=== PATIENT | male | born 1955 ===

== ENCOUNTER 2017-01-21 21:49 | Emergency (ER) | payer OTHER ==
[2017-01-21 22:25] LABS: BASO # 0.1 K/uL (0.0-0.2); BASO % 0.9 % (0.0-2.0); EOS # 0.3 K/uL (0.0-0.7); EOS % 4.8 % (0.0-4.0); HEMATOCRIT 44.1 % (35.0-51.0); LYMPH # 2.3 K/uL (1.0-4.3); LYMPH % 37.8 % (20.0-40.0); MEAN CELL VOLUME 85.4 fL (80.0-94.0); MEAN CORPUSCULAR HEMOGLOBIN 28.1 pg (27.0-31.0); MEAN CORPUSCULAR HGB CONC 32.9 g/dL (33.0-37.0); MEAN PLATELET VOLUME 8.3 fL (7.2-11.7); MONO # 0.6 K/uL (0.0-0.8); MONO % 10.3 % (0.0-10.0); RED CELL DISTRIBUTION WIDTH 14.3 % (11.5-14.5); WHITE BLOOD COUNT 6.2 K/uL (4.8-10.8)
[2017-01-21 22:26] VITALS: RESP 18
--- NOTE | 2017-01-21 22:26 | C.PDOC ---
History Of Present Illness 62 year old male presents to the ER with a complaint of left flank pain that radiates forward. Patient notes he had right flank pain yesterday. Denies fever , nausea, vomiting, or other complaints. Time Seen by Provider: 01/21/17 22:03 Chief Complaint (Nursing): Abdominal Pain History Per: Patient History/Exam Limitations: no limitations Onset/Duration Of Symptoms: Hrs Current Symptoms Are (Timing): Still Present Location Of Pain/Discomfort: Other (Left flank) Radiation Of Pain To:: None Quality Of Discomfort: "Pain" Associated Symptoms: denies: Fever, Chills, Nausea, Vomiting Exacerbating Factors: None Alleviating Factors: None Recent travel outside of the [place]: No Past Medical History Reviewed: Historical Data, Nursing Documentation, Vital Signs Vital Signs: Last Vital Signs Temp 98.1 F 01/21/17 23:34 Pulse 75 01/21/17 23:34 Resp 18 01/21/17 23:34 BP 123/75 01/21/17 23:34 Pulse Ox 100 01/21/17 23:46 - Medical History PMH: Colonic Polyps (REMOVED) Surgical History: Cholecystectomy Family History: States: Unknown Family Hx - Social History Hx Alcohol Use: No Hx Substance Use: No - Immunization History Hx Tetanus Toxoid Vaccination: No Hx Influenza Vaccination: No Hx Pneumococcal Vaccination: No Review Of Systems Constitutional: Negative for: Fever, Chills Gastrointestinal: Negative for: Nausea, Vomiting Musculoskeletal: Positive for: Other (Left flank pain) Physical Exam - Physical Exam Appears: Non-toxic, No Acute Distress Skin: Normal Color, Warm, Dry Head: Atraumatic, Normacephalic Eye(s): bilateral: Normal Inspection Oral Mucosa: Moist Neck: Normal, No Midline Cervical Tenderness, No Paracervical Tenderness, Supple Chest: Symmetrical, No Tenderness Cardiovascular: Rhythm Regular Respiratory: Normal Breath Sounds, No Rales, No Rhonchi, No Wheezing Gastrointestinal/Abdominal: Soft, No Tenderness Back: Other (Left flank tenderness) Extremity: Normal ROM (x4) Neurological/Psych: Oriented x3, Normal Speech, Other (No focal deficits) ED Course And Treatment - Laboratory Results Result Diagrams: 01/21/17 22:21 01/21/17 22:21 O2 Sat by Pulse Oximetry: 100 - CT Scan/US CT abd/pel Other Rad Studies (CT/US): Read By Radiologist, Radiology Report Reviewed CT/US Interpretation: EXAM: CT Abdomen and Pelvis Without Intravenous Contrast. CLINICAL HISTORY: 62 years old, male; Pain; Abdominal pain; Flank; Other: Stas; Additional info: Abd pain. TECHNIQUE: Axial computed tomography images of the abdomen and pelvis without intravenous contrast. All CT. scans at this facility use one or more dose reduction techniques, viz.: automated exposure control;. ma/kV adjustment per patient size (including targeted exams where dose is matched to indication; i.e. head); or iterative reconstruction technique. Coronal and sagittal reformatted images were created and reviewed. COMPARISON: No relevant prior studies available. FINDINGS: Lower thorax: Cardiomegaly. Subpleural reticular opacities within the dependent aspect of the lower. lobes may represent subsegmental atelectasis or scarring. ABDOMEN: Liver: The liver is normal in appearance. Gallbladder and bile ducts: There has been a cholecystectomy. No ductal dilation. Pancreas: The pancreas is normal. No ductal dilation. Spleen: The spleen is normal. Adrenals: The adrenal glands are normal. Kidneys and ureters: Large fluid attenuation lesion within the lower pole of the left kidney measuring. 5.3 cm x 5.2 cm x 5.8 cm, consistent with a simple cyst. No renal stone or hydronephrosis.The. ureters are normal. Stomach and bowel: There is a moderate amount of stool present within the distal colon and a large. amount of stool present within the proximal colon. Anastomotic suture material within the right. midabdomen region of the hepatic flexure. No mucosal thickening. Appendix: The appendix is not visualized and is likely surgically absent. PELVIS: Bladder: The bladder is normal. No stones. Reproductive: The prostate gland demonstrates nonspecific parenchymal calcifications. Mild. prostatic hypertrophy. Small right hydrocele.There are numerous benign phleboliths in the pelvis. ABDOMEN and PELVIS: Intraperitoneal space: Normal. No free air. No significant fluid collection. Bones/joints: Lumbar spondylosis. No acute osseous abnormality. No dislocation. Soft tissues: Small fat-containing right hernia. Vasculature: The aorta demonstrates mild atherosclerotic calcification. No abdominal aortic. aneurysm. Lymph nodes: Normal. No enlarged lymph nodes. IMPRESSION: 1. No urolithiasis. 2. Moderate to large stool load. Correlate for constipation. 3. Prostatic hypertrophy. 4. Small fat-containing right inguinal hernia. 5. Small right hydrocele. 6. Cardiomegaly. Medical Decision Making Medical Decision Making: ro renal stone, uti/pyelo Blood work, CT abd/pel, and urinalysis ordered. Toradol administered. 1100: ct shows moderate constipation, other huston neg. pt offered enema refuses, states he wishes to go home. abd soft no ttp Disposition - Disposition Referrals: Braden Camejo MD [Staff Provider] - Disposition: HOME/ ROUTINE Disposition Time: 22:48 Condition: STABLE Additional Instructions: follow up with your doctor. return to er with worsening symptoms or concerns. Prescriptions: Polyethylene Glycol 3350 [Miralax] 17 gm PO DAILY PRN #4 ml PRN Reason: Constipation Instructions: Constipation (ED), Acute Abdominal Pain (ED) Forms: Socrative (Lao) - Clinical Impression Clinical Impression: Abdominal pain, Constipation - Scribe Statement The provider has reviewed the documentation as recorded by the Scribe gM Valles All medical record entries made by the Scribe were at my direction and personally dictated by me. I have reviewed the chart and agree that the record accurately reflects my personal performance of the history, physical exam, medical decision making, and the department course for this patient. I have also personally directed, reviewed, and agree with the discharge instructions and disposition.
[2017-01-21 22:43] LABS: ALB/GLOB RATIO 1.1 (1.0-2.1); ALKALINE PHOSPHATASE 64 U/L (38-126); ALT/SGPT 71 U/L (21-72); AST/SGOT 47 U/L (17-59); BILIRUBIN,TOTAL 0.7 mg/dL (0.2-1.3); BLOOD UREA NITROGEN 16 mg/dL (9-20); CALCIUM 8.3 mg/dl (8.6-10.4); CARBON DIOXIDE 25 mmol/L (22-30); CHLORIDE 99 mmol/L (98-107); GFR AFRICAN-AMERICAN > 60; GLUCOSE,RANDOM 98 mg/dL (75-110); POTASSIUM 3.8 mmol/L (3.6-5.2); SODIUM 131 mmol/L (132-148); TOTAL PROTEIN 7.2 g/dL (6.3-8.3)
[2017-01-21 22:48] LABS: RBC URINE 1 /hpf (0-3); URINE BILIRUBIN NEGATIVE (NEGATIVE); URINE BLOOD NEGATIVE (NEGATIVE); URINE COLOR Yellow (YELLOW); URINE GLUCOSE (UA) NORMAL (Normal); URINE KETONE NEGATIVE (NEGATIVE); URINE LEUKOCYTE ESTERASE NEG Leu/uL (Negative); URINE PROTEIN NEGATIVE (NEGATIVE); URINE UROBILINOGEN NORMAL mg/dL (0.2-1.0); WBC URINE < 1 /hpf (0-5)
[2017-01-21 23:19] LABS: INR 1.1
[2017-01-21 23:35] VITALS: BP 123/75; PULSE 75; TEMP 98.1
[2017-01-21 23:46] VITALS: O2SAT 100
--- NOTE | 2017-01-22 18:01 | CT ---
PROCEDURE: CT scan of the abdomen and pelvis dated 01/21/2017. HISTORY: Abdominal pain. COMPARISON: None. TECHNIQUE: Contiguous axial images of the abdomen and pelvis. Oral contrast was administered. No IV contrast given. Coronal and Sagittal reformats generated. Radiation dose: Total exam DLP = 718.44 mGy-cm. This CT exam was performed using one or more of the following dose reduction techniques: Automated exposure control, adjustment of the mA and/or kV according to patient size, and/or use of iterative reconstruction technique. FINDINGS: LOWER THORAX: Mild passive atelectasis both posterior lower lung gonzalez. No evidence of basilar pneumothorax. Heart size is enlarged. Small hiatal hernia. LIVER: Unremarkable. No gross lesion or ductal dilatation. GALLBLADDER AND BILE DUCTS: Changes of a cholecystectomy again noted. PANCREAS: Unremarkable. No mass. No ductal dilatation. SPLEEN: Spleen exhibits normal size and attenuation pattern. ADRENALS: No adrenal masses seen. . KIDNEYS AND URETERS: . No evidence of nephrolithiasis or hydronephrosis. Large cyst lower pole left kidney measuring approximately 5.6 cm in greatest CC dimension. BLADDER: Urinary bladder is physiologically distended. Minimal wall thickening likely due to muscular hypertrophy. Correlation with urinalysis recommended. REPRODUCTIVE: Prostate gland measures approximately 5.3 cm in transverse dimension. Faint prostatic calcifications are present of. Findings likely due to BPH however correlation with PSA recommended. Apparent left-sided hydrocele. APPENDIX: Appendix is not seen with certainty however no obvious inflammatory changes at right lower quadrant of the abdomen. BOWEL: Evaluation of the bowel is limited due to the lack of oral contrast material. The stomach is distended with food debris liquid and air. Visualized loops of small bowel exhibit normal contour and caliber. No evidence of acute mechanical bowel obstruction. . There appears to be at a anastomosis involving the right colon. Clinical correlation with surgical history. Large amount of stool is present within the residual of right colon as well as transverse and to a lesser degree proximal descending colon consistent with fecal retention/ constipation. PERITONEUM: Unremarkable. No fluid collection. No free air. Small fat containing umbilical hernia. Low the 0 Small fat containing right inguinal hernia. LYMPH NODES: Unremarkable. No enlarged lymph nodes. VASCULATURE: Unremarkable. No aortic aneurysm. BONES: Minor multilevel degenerative spondylosis of the lower thoracic and lumbar spine. OTHER FINDINGS: None. IMPRESSION: Findings consistent with constipation. Postoperative changes right colon as described. No evidence of nephrolithiasis or hydronephrosis of. Large cyst left kidney. Enlarged prostate gland. Correlation with PSA recommended. Small left-sided hydrocele. Cardiomegaly. Small fat containing umbilical and inguinal hernias.
== END 2017-01-21 23:35 | disposition home or self-care (01) ==
LOC: C.ER 21:49
DX: K59.00 Constipation, unspecified (principal); R10.9 Unspecified abdominal pain
CPT/HCPCS: 74176; 80053; 81001; 83690; 85025; 85610; 85730; 96374; 99285; J1885